=== PATIENT | female | born 1990 | race Caucasian/White ===

== ENCOUNTER 2018-05-10 16:42 | Emergency (ER) | payer BC, OTHER ==
[~2018-05-10] VITALS: Ht 165.1 cm; Wt 79.8 kg
[2018-05-10] MEDS ORDERED: LIDOCAINE WITH 8.4% SOD BICARB 3 ML DISP.SYRIN. INJ ONE (17:15)
[2018-05-10] MEDS ORDERED: oxyCODONE/APAP 10/325 1 TAB TABLET PO ONE (17:15)
[2018-05-10] MEDS ORDERED: SULF1TAB24 PO (17:59)
[2018-05-10] MEDS ORDERED: OXYC-323 PO (17:59)
--- NOTE | 2018-05-10 18:00 | PHYS DOC ---
Past Medical History Past Medical History: No Pertinent History Past Surgical History: No Surgical History Alcohol Use: Occasionally Drug Use: None Adult General Chief Complaint Chief Complaint: ABSCESS HPI HPI Patient is a 27 year old female who presents with an abscess to her left upper buttock. She states that she is finding it difficult to walk due to the pain. She denies fever, nausea or vomiting. She states that this has been ongoing for approximately 3 days. Review of Systems Review of Systems Constitutional: Denies fever or chills [] Respiratory: Denies cough or shortness of breath [] Cardiovascular: No additional information not addressed in HPI [] Musculoskeletal: Denies back pain or joint pain [] Integument: See history of present illness Neurologic: Denies headache, focal weakness or sensory changes [] Endocrine: Denies polyuria or polydipsia [] All other systems were reviewed and found to be within normal limits, except as documented in this note. Current Medications Current Medications Current Medications Medications (Trade) Dose Ordered Sig/Jennifer Start Time Stop Time Status Last Admin Dose Admin Lidocaine/Sodium Bicarbonate (Buffered Lidocaine 1%) 3 ml 1X ONCE 05/10/18 17:15 05/10/18 17:16 DC Oxycodone/ Acetaminophen (Percocet 10/325) 1 tab 1X ONCE 05/10/18 17:15 05/10/18 17:16 DC 05/10/18 17:12 1 TAB Allergies Allergies Allergies Coded Allergies Type Severity Reaction Last Updated Verified No Known Drug Allergies 08/28/15 No Physical Exam Physical Exam Constitutional: Well developed, well nourished, no acute distress, non-toxic appearance. [] Cardiovascular:Heart rate regular rhythm, no murmur [] Lungs & Thorax: Bilateral breath sounds clear to auscultation [] Abdomen: Bowel sounds normal, soft, no tenderness, no masses, no pulsatile masses. [] Skin: There is a 4 cm x 3 cm area of induration with a 1 cm in diameter area of fluctuance to the upper left gluteal fold Back: No tenderness, no CVA tenderness. [] Extremities: No tenderness, no cyanosis, no clubbing, ROM intact, no edema. [] Neurologic: Alert and oriented X 3, normal motor function, normal sensory function, no focal deficits noted. [] Psychologic: Affect normal, judgement normal, mood normal. [] Current Patient Data Vital Signs Vital Signs Date Time Temp Pulse Resp B/P (MAP) Pulse Ox O2 Delivery O2 Flow Rate FiO2 05/10/18 18:18 98.0 88 18 130/70 (90) 98 98.0 05/10/18 17:14 Room Air EKG EKG [] Radiology/Procedures Radiology/Procedures []Abscess Incision and Drainage with irrigation by me: Location: Anesthesia: Local 1% BufferedLidocaine Technique: Irrigated. Disrupted loculations w/ instrumentation, a large amount of foul-smelling purulent drainage was removed from the lesion Packing: None Complications: Neurovascularly intact post procedure 48 hour wound check. Scar minimization instructions given. Course & Med Decision Making Course & Med Decision Making Pertinent Labs and Imaging studies reviewed. (See chart for details) [] Dragon Disclaimer Dragon Disclaimer This electronic medical record was generated, in whole or in part, using a voice recognition dictation system. Departure Departure Impression: Primary Impression: Abscess Disposition: 01 HOME, SELF-CARE Condition: STABLE Referrals: ZACARIAS VICENTE DO (PCP) Patient Instructions: Abscess, Care After Additional Instructions: Take the medication as directed. Do not drive or operate heavy machinery while taking the pain medication. Follow-up with your primary care provider in 3 days for recheck or return to the emergency department if worsening. Scripts Oxycodone/Apap 5-325 (PERCOCET 5-325 MG TABLET) 1 Each Tablet 1-2 TAB PO Q4-6HRS for pain, #20 TAB Prov: FARNAZ MOE APRN 05/10/18 Sulfamethoxazole/Trimethoprim (BACTRIM DS TABLET) 1 Each Tablet 1 TAB PO BID for infection, #20 TAB Prov: FARNAZ MOE APRN 05/10/18 FARNAZ MOE APRN May 10, 2018 18:00
[2018-05-10 18:18] VITALS: BP 130/70
== END 2018-05-10 18:19 | disposition home or self-care (01) ==
LOC: ER 16:42
DX: L02.31 Cutaneous abscess of buttock (principal)
CPT/HCPCS: 10060; 99283